=== PATIENT | female | born 1990 | race African-American/Black ===

== ENCOUNTER 2016-11-17 20:20 | Emergency (ER) | payer MEDICAID, OTHER ==
[~2016-11-17] VITALS: Ht 157.5 cm; Wt 110.0 kg
[~2016-11-17 20:20] MED LIST: PROM25SU8 PO
[2016-11-17 20:21] VITALS: BP 139/77; PULSE 63; RESP 16; TEMP 98.3; O2SAT 100
[2016-11-17 23:04] LABS: AUTOMATED NEUTROPHIL # 5.5 TH/MM3 (1.8-7.7); BASOPHIL % 0.3 % (0.0-2.0); EOSINOPHIL # 0.1 TH/MM3 (0-0.4); EOSINOPHIL % 1.3 % (0.0-4.0); HEMATOCRIT 36.1 % (35.0-46.0); HEMO FLAGS DIFF FINAL; LYMPH % 34.2 % (9.0-44.0); LYMPHOCYTE # 3.2 TH/MM3 (1.0-4.8); MEAN CELL VOLUME 80.4 FL (80.0-100.0); MEAN CORPUSCULAR HEMOGLOBIN 26.7 PG (27.0-34.0); MEAN CORPUSCULAR HGB CONC 33.2 % (32.0-36.0); MONO % 5.1 % (0.0-8.0); NEUT % 59.1 % (16.0-70.0); PLATELET COUNT 291 TH/MM3 (150-450); RED BLOOD COUNT 4.49 MIL/MM3 (4.00-5.30); WHITE BLOOD COUNT 9.3 TH/MM3 (4.0-11.0)
[2016-11-17 23:13] LABS: BACTERIA, URINE RARE /hpf; BLOOD, URINE NEG (NEG); COMMENT (UR) CULT NOT INDICATED; CULTURE IF INDICATED CULT NOT INDICATED; GLUCOSE,URINE NEG (NEG); KETONE, URINE NEG (NEG); MUCUS URINE FEW /lpf (OCC); PH, URINE 6.5 (5.0-8.5); SQUAMOUS EPITHELIAL CELL URINE 4 /hpf (0-5); URINE COLOR YELLOW (YELLW/STRAW)
[2016-11-17 23:19] LABS: NITRITE,URINE POS (NEG)
[2016-11-17 23:28] LABS: BICARBONATE 26.9 MEQ/L (21.0-32.0); POTASSIUM 3.9 MEQ/L (3.5-5.1)
[2016-11-18 00:09] LABS: INDIRECT BILIRUBIN 0.2 MG/DL (0.0-0.8); TOTAL BILIRUBIN ADULT 0.3 MG/DL (0.2-1.0)
--- NOTE | 2016-11-18 00:12 | PD ---
HPI Chief Complaint: Abdominal Pain Time Seen by Provider: 23:31 Travel History International Travel<30 days: No Contact w/Intl Traveler<30days: No Traveled to known affect area: No History of Present Illness HPI Patient is an obese 26 yo AAF presenting to the [facility] ED with severe RUQ pain that woke her from her sleep this morning with associated nausea and vomiting. She states the pain was so severe she could not drive herself to the hospital so she had to wait for her mother to get off work to drive her. The pain is 10/ 10 and radiates to her right side. She states she had similar pain in 2011 when she was diagnosed with gallstones via US. She was treated nonoperatively and has not had any further episodes until today. Denies any fever chills, SOB, Chest pain, or changes in bowel habitus. She states she is otherwise healthy, takes no medications and has no known medical conditions. PFSH Past Medical History Asthma: Yes Cancer: No Cardiovascular Problems: Yes (ABNORMAL EKG) Developmental Delay: No Diabetes: No Diminished Hearing: No Endocrine: No Gastrointestinal Disorders: Yes (gallstones) GERD: Yes Genitourinary: No Headaches: Yes Hepatitis: No Hiatal Hernia: No Hypertension: Yes Immune Disorder: No Musculoskeletal: No Neurologic: Yes (MIGRAINES) Psychiatric: No Reproductive: Yes (MISCARRIAGE) Respiratory: Yes (ASTHMA) Immunizations Current: No Migraines: Yes Thyroid Disease: No ?: Not LMP: 10/23/16 : 3 Para: 3 Miscarriage: 0 : 0 Dilation and Curettage (D&C): Yes (10/03/14) Past Surgical History Oral Surgery: Yes (TONSILLECTOMY) Tonsillectomy: Yes Social History Alcohol Use: Yes (occassional) Tobacco Use: No Substance Use: No Allergies-Medications (Allergen,Severity, Reaction): Coded Allergies: Augmentin (Verified Allergy, Severe, Hives, 11/17/16) *MDRO Multi-Drug Resistant Organism (Unverified Adverse Reaction, Unknown , 11/17/16) MRSA 2007 thigh wound Uncoded Allergies: LICORICE (Adverse Reaction, Severe, 09/08/10) Reported Meds & Prescriptions Reported Meds & Active Scripts Active Cipro (Ciprofloxacin HCl) 250 Mg Tab 250 Mg PO BID 5 Days Review of Systems Except as stated in HPI: all other systems reviewed are Neg General / Constitutional: No: Fever, Chills Cardiovascular: No: Chest Pain or Discomfort, Palpitations Gastrointestinal: Positive: Nausea, Vomiting, Abdominal Pain, No: Diarrhea, Constipation, Changes in Bowel Habits Physical Exam Narrative GENERAL: Patient is an obese AA female in mild distress from her abdominal pain SKIN: Warm and dry. HEAD: Atraumatic. Normocephalic. EYES: Pupils equal and round. No scleral icterus. No injection or drainage. ENT: No nasal bleeding or discharge. Mucous membranes pink and moist. NECK: Trachea midline. No JVD. CARDIOVASCULAR: Regular rate and rhythm. RESPIRATORY: No accessory muscle use. Clear to auscultation. Breath sounds equal bilaterally. GASTROINTESTINAL: Abdomen soft, nondistended. Tender in the RUQ. Pain is increased on inspiration, no masses identified MUSCULOSKELETAL: Extremities without clubbing, cyanosis, or edema. No obvious deformities. NEUROLOGICAL: Awake and alert. No obvious cranial nerve deficits. Motor grossly within normal limits. Five out of 5 muscle strength in the arms and legs. Normal speech. PSYCHIATRIC: Appropriate mood and affect; insight and judgment normal. Data Data Last Documented VS Vital Signs Date Time Temp Pulse Resp B/P Pulse Ox O2 Delivery O2 Flow Rate FiO2 11/17/16 22:20 18 11/17/16 20:21 98.3 63 139/77 100 Room Air VS noted Orders Basic Metabolic Panel (Bmp) (11/17/16 21:03) Complete Blood Count With Diff (11/17/16 21:03) Urinalysis - C+S If Indicated (11/17/16 21:03) Ed Urine Pregnancytest Poc (11/17/16 21:03) Hepatic Functional Panel (11/17/16 22:22) Lipase (11/17/16 22:22) Ciprofloxacin (Cipro) (11/18/16 01:00) Acetamin-Hydrocod 325-5 Mg ([place] 5-325 (11/18/16 01:00) Ed Poc Ultrasound (11/18/16 00:46) Labs Laboratory Tests Test 11/17/16 22:22 White Blood Count 9.3 TH/MM3 Red Blood Count 4.49 MIL/MM3 Hemoglobin 12.0 GM/DL Hematocrit 36.1 % Mean Corpuscular Volume 80.4 FL Mean Corpuscular Hemoglobin 26.7 PG Mean Corpuscular Hemoglobin 33.2 % Concent Red Cell Distribution Width 14.0 % Platelet Count 291 TH/MM3 Mean Platelet Volume 8.5 FL Neutrophils (%) (Auto) 59.1 % Lymphocytes (%) (Auto) 34.2 % Monocytes (%) (Auto) 5.1 % Eosinophils (%) (Auto) 1.3 % Basophils (%) (Auto) 0.3 % Neutrophils # (Auto) 5.5 TH/MM3 Lymphocytes # (Auto) 3.2 TH/MM3 Monocytes # (Auto) 0.5 TH/MM3 Eosinophils # (Auto) 0.1 TH/MM3 Basophils # (Auto) 0.0 TH/MM3 CBC Comment DIFF FINAL Differential Comment Urine Color YELLOW Urine Turbidity HAZY Urine pH 6.5 Urine Specific [place] 1.021 Urine Protein NEG mg/dL Urine Glucose (UA) NEG mg/dL Urine Ketones NEG mg/dL Urine Occult Blood NEG Urine Nitrite POS Urine Bilirubin NEG Urine Urobilinogen 4.0 MG/DL Urine Leukocyte Esterase TRACE Urine RBC 1 /hpf Urine WBC 1 /hpf Urine Squamous Epithelial 4 /hpf Cells Urine Bacteria RARE /hpf Urine Mucus FEW /lpf Microscopic Urinalysis Comment CULT NOT INDICATED Sodium Level 140 MEQ/L Potassium Level 3.9 MEQ/L Chloride Level 106 MEQ/L Carbon Dioxide Level 26.9 MEQ/L Anion Gap 7 MEQ/L Blood Urea Nitrogen 10 MG/DL Creatinine 0.72 MG/DL Estimat Glomerular Filtration 119 ML/MIN Rate Random Glucose 82 MG/DL Calcium Level 8.7 MG/DL Total Bilirubin 0.3 MG/DL Direct Bilirubin 0.1 MG/DL Indirect Bilirubin 0.2 MG/DL Aspartate Amino Transf 17 U/L (AST/SGOT) Alanine Aminotransferase 56 U/L (ALT/SGPT) Alkaline Phosphatase 113 U/L Total Protein 7.6 GM/DL Albumin 3.4 GM/DL Lipase 106 U/L [facility] Medical Decision Making Medical Screen Exam Complete: Yes Emergency Medical Condition: Yes Medical Record Reviewed: Yes Differential Diagnosis Acute cholecystitis, appendicitis, diverticulitis, gastroenteritis Narrative Course CBC & BMP Diagram 11/17/16 22:22 LFTs normal Lipase 106 UA: UTI Bedside US reveals gallbladder calculi without pericholecystic fluid or gallbladder wall thickening or significant intrahepatic biliary ductal dilatation. There is mild tenderness with deep palpation in the right upper quadrant. Based on the blood work examined history acute cholecystitis is considered less likely however follow-up with the surgeon on an outpatient basis is appropriate. Cipro for UTI. Work note provided at patient's request. Diagnosis Primary Impression: UTI (urinary tract infection) Qualified Code: N30.00 - Acute cystitis without hematuria Additional Impression: Cholelithiasis Qualified Code: K80.20 - Calculus of gallbladder without cholecystitis without obstruction Referrals: Justin Monsivais MD 2 days Additional Instructions: You have a choice when it comes to health care, and we are glad that you chose [facility]. Hopefully, we have met your expectations on today's visit. You are welcome to return to [facility] at any time, as we are committed to meeting the health care needs of our community. Med/Other Pt SpecificInfo: Prescription(s) given Scripts Ciprofloxacin (Cipro)250 Mg [id number] Mg PO BID 5 Days Ref 0 Prov:Ridge Mcintosh MD 11/18/16 Disposition: 01 DISCHARGE HOME Condition: Stable Ridge Mcintosh MD Nov 18, 2016 00:12
[2016-11-18 00:30] VITALS: BP 124/67; PULSE 62; RESP 16; O2SAT 99
[2016-11-18] MEDS ORDERED: CIPROFLOXACIN 500 MG TAB PO ONE (01:00)
[2016-11-18] MEDS ORDERED: ACETAMINOPHEN/HYDROcodone 325 MG/5 MG TAB PO ONE (01:00)
[2016-11-18] MEDS ORDERED: CIPR250T52 PO (01:12)
== END 2016-11-18 02:01 | disposition home or self-care (01) ==
LOC: NEPC 20:20
DX: N30.00 Acute cystitis without hematuria (principal); K80.20 Calculus of gallbladder without cholecystitis without obstruction; I10 Essential (primary) hypertension; E66.9 Obesity, unspecified; Z87.09 Personal history of other diseases of the respiratory system; Z86.79 Personal history of other diseases of the circulatory system; Z87.19 Personal history of other diseases of the digestive system; Z86.69 Personal history of other diseases of the nervous system and sense organs; Z87.42 Personal history of other diseases of the female genital tract
CPT/HCPCS: 80048; 80076; 81001; 83690; 84703; 85025; 99284

== ENCOUNTER 2016-11-25 10:05 | Emergency (ER) | payer MEDICAID, OTHER ==
[~2016-11-25] VITALS: Ht 157.5 cm; Wt 100.0 kg
[~2016-11-25 10:05] MED LIST changes: +CIPR250T52 PO; -PROM25SU8 PO
[2016-11-25 10:07] VITALS: BP 125/74; PULSE 81; RESP 14; TEMP 98.2; O2SAT 99
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
[2016-11-25] MEDS ORDERED: ACETAMINOPHEN/HYDROcodone 325 MG/5 MG TAB PO ONE (13:00)
[2016-11-25] MEDS ORDERED: PROPARACAINE HCL 0.5% OPHT SOLN 15 ML BTL LEFT EYE ONE (13:00)
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
[2016-11-25] MEDS ORDERED: ERYTOIN10 LEFT EYE (14:04)
[2016-11-25] MEDS ORDERED: HYDR-3533 PO (14:04)
== END 2016-11-25 14:16 | disposition home or self-care (01) ==
LOC: NEPB 10:05
DX: S05.02XA Injury of conjunctiva and corneal abrasion without foreign body, left eye, initial encounter (principal); S00.12XA Contusion of left eyelid and periocular area, initial encounter; W50.0XXA Accidental hit or strike by another person, initial encounter; Y93.72 Activity, wrestling
CPT/HCPCS: 70450; 70486; 72125

== ENCOUNTER 2016-12-09 08:13 | Emergency (ER) | payer OTHER, MEDICAID ==
[~2016-12-09] VITALS: Ht 157.5 cm; Wt 100.0 kg
[~2016-12-09 08:13] MED LIST changes: +ERYTOIN10 LEFT EYE; +HYDR-3533 PO
[2016-12-09 08:16] VITALS: BP 147/83; PULSE 66; RESP 18; TEMP 98.5; O2SAT 100
--- NOTE | 2016-12-09 09:54 | PD ---
HPI Chief Complaint: ENT Complaint Time Seen by Provider: 09:53 Travel History International Travel<30 days: No Contact w/Intl Traveler<30days: No Traveled to known affect area: No History of Present Illness HPI 26-year-old female presents to the emergency Department with complaint of sore throat 2 days. She also has cough, nasal congestion, ear pain. Denies fever, chills, nausea, vomiting. Denies lump in throat, difficulty swallowing, unusual drooling. Reports painful swallowing. Reports burning sensation to the back of the throat. Took Tylenol last night for sore throat with some relief of pain. Not taking any other medications or tried any treatments to alleviate her symptoms. A coworker had sore throat also. History of asthma. Denies wheezing, chest pain, shortness of breath. Allergies to Augmentin. Says she can take penicillins. Does not have primary care provider. No other modifying factors or associated signs and symptoms. PFSH Past Medical History Asthma: Yes Cancer: No Cardiovascular Problems: Yes (ABNORMAL EKG) Developmental Delay: No Diabetes: No Diminished Hearing: No Endocrine: No Gastrointestinal Disorders: Yes (gallstones) GERD: Yes Genitourinary: No Headaches: Yes Hepatitis: No Hiatal Hernia: No Hypertension: Yes Immune Disorder: No Musculoskeletal: No Neurologic: Yes (MIGRAINES) Psychiatric: No Reproductive: Yes (MISCARRIAGE) Respiratory: Yes (ASTHMA) Immunizations Current: No Migraines: Yes Thyroid Disease: No ?: Not LMP: 12/19/16 : 3 Para: 3 Miscarriage: 0 : 0 Dilation and Curettage (D&C): Yes (10/03/14) Past Surgical History Oral Surgery: Yes (TONSILLECTOMY) Tonsillectomy: Yes Social History Alcohol Use: Yes (occassional) Tobacco Use: No Substance Use: No Allergies-Medications (Allergen,Severity, Reaction): Coded Allergies: Augmentin (Verified Allergy, Severe, Hives, 12/09/16) *MDRO Multi-Drug Resistant Organism (Unverified Adverse Reaction, Unknown , 12/09/16) MRSA 2007 thigh wound Uncoded Allergies: LICORICE (Adverse Reaction, Severe, 09/08/10) Reported Meds & Prescriptions Reported Meds & Active Scripts Active No Active Prescriptions or Reported Medications Review of Systems Except as stated in HPI: all other systems reviewed are Neg Physical Exam Narrative GENERAL: Well-nourished, well-developed female patient, in no acute distress; afebrile, nontoxic-appearing SKIN: Warm and dry. No rash. HEAD: Atraumatic. Normocephalic. EYES: Pupils equal and round at 3 mm with brisk reaction. No scleral icterus. No injection or drainage. PERRLA. ENT: Mucosa pink and moist. No erythema, edema or exudates. No uvular edema. No uvular, palatal, or tonsillar deviation. Airway patent. EARS: Bilateral pinnae and external canals appear within normal limits. Bilateral tympanic membranes without erythema, dullness or perforation. NECK: Trachea midline. No anterior cervical lymphadenopathy; with tenderness on palpation bilaterally. CARDIOVASCULAR: Regular rate and rhythm. No murmur appreciated. 3+ radial pulses. RESPIRATORY: No accessory muscle use. Clear to auscultation. Breath sounds equal bilaterally. GASTROINTESTINAL: Abdomen soft, non-tender, nondistended. Hepatic and splenic margins not palpable. Bowel sounds are active 4 quadrants. MUSCULOSKELETAL: No obvious deformities. No clubbing. No cyanosis. No edema. NEUROLOGICAL: Awake and alert. Oriented 3. No obvious cranial nerve deficits. Motor grossly within normal limits. Normal speech. Moves all extremities. 5/5 strength to all extremities. PSYCHIATRIC: Appropriate mood and affect; insight and judgment normal. Data Data Last Documented VS Vital Signs Date Time Temp Pulse Resp B/P Pulse Ox O2 Delivery O2 Flow Rate FiO2 12/09/16 08:16 98.5 66 18 147/83 100 Room Air Orders Group A Rapid Strep Screen (12/09/16 09:54) Strep Culture (Group A) (12/09/16 10:10) [facility] Medical Decision Making Medical Screen Exam Complete: Yes Emergency Medical Condition: Yes Medical Record Reviewed: Yes Differential Diagnosis Pharyngitis, viral pharyngitis, viral illness Narrative Course 26-year-old female complaining of sore throat 2 days. She has had accompanied ear pain, cough, nasal congestion. Patient is afebrile and nontoxic-appearing. Denies lump in throat, unusual drooling, difficulty swallowing. Rapid strep ordered. 1050: Rapid strep negative. Ibuprofen, Magic mouthwash, Nasonex nasal spray prescribed for home. Patient is medically cleared and stable for discharge. Discussed reasons to return to the emergency department. Instructed patient to follow up with primary care provider. Patient agrees with treatment plan. The patients vital signs are stable and the patient is stable for outpatient follow- up and treatment. Patient discharged home, stable and in no acute distress. Diagnosis Primary Impression: Viral illness Referrals: Primary Care Physician Patient Instructions: Cold Symptoms (ED), General Instructions, Safe Use of Cough and Cold Medicines (ED) Departure Forms: Tests/Procedures, Work Release Enter return to work date: Dec 11, 2016 Additional Instructions: Get plenty of sleep/rest Rest your voice Drink plenty of fluids to prevent dehydration Use warm saltwater gargles to soothe throat pain Use an air humidifier/turn off ceiling fans Use throat lozenges as needed for sore throat Use ibuprofen or acetaminophen as needed to relieve pain and fever Follow-up with your primary care provider within 2-4 days Return immediately to the emergency department with worsening of symptoms Med/Other Pt SpecificInfo: Prescription(s) given Scripts Oyyjbatt-Wibpepzusfrkjnq-Urarjogkz Liq (Magic Mouthwash Adult Liq)120 Ml Susp5 Ml SWISH-SPIT Q3HR PRN (SORE THROAT) #120 ML Ref 0 Each 5mL contains: Nystatin 200,000units, Diphenhydramine 4.25mg, Viscous Lidocaine 10mg, Story syrup 0.8 mL Prov:Nubia Baldwin 12/09/16 Ibuprofen 800 Mg [id number] Mg PO Q6HR PRN (PAIN) #30 TAB Ref 0 Prov:Nubia Baldwin 12/09/16 Mometasone Nasal Empire (Nasonex Nasal Empire)50 Mcg/Act Naspr2 Empire EACH NARE DAILY PRN (NASAL CONGESTION) #1 BOTTLE Ref 0 Prov:Nubia Baldwin 12/09/16 Disposition: 01 DISCHARGE HOME Condition: Stable Nubia Baldwin Dec 09, 2016 09:54
[2016-12-09] MEDS ORDERED: IBUP800T23 PO (10:53)
[2016-12-09] MEDS ORDERED: MOME17I EACH NARE (10:53)
[2016-12-09] MEDS ORDERED: MAGICADU2 SWISH-SPIT (10:53)
== END 2016-12-09 11:22 | disposition home or self-care (01) ==
LOC: NEPB 08:13
DX: B34.9 Viral infection, unspecified (principal); J02.9 Acute pharyngitis, unspecified; H92.09 Otalgia, unspecified ear; J45.909 Unspecified asthma, uncomplicated; I10 Essential (primary) hypertension; K21.9 Gastro-esophageal reflux disease without esophagitis
CPT/HCPCS: 87081; 87880; 99283

== ENCOUNTER 2017-03-15 01:30 | Emergency (ER) | payer MEDICAID ==
[~2017-03-15 01:30] MED LIST changes: -CIPR250T52 PO; -ERYTOIN10 LEFT EYE; -HYDR-3533 PO; +IBUP800T23 PO; +MAGICADU2 SWISH-SPIT; +MOME17I EACH NARE
[2017-03-15 01:35] VITALS: BP 132/84; PULSE 67; RESP 16; TEMP 98.8; O2SAT 99
== END 2017-03-15 02:04 | disposition left against medical advice (07) ==
LOC: NED 01:30
DX: T14.8 Other injury of unspecified body region (principal); W57.XXXA Bitten or stung by nonvenomous insect and other nonvenomous arthropods, initial encounter; Z53.21 Procedure and treatment not carried out due to patient leaving prior to being seen by health care provider
CPT/HCPCS: 99281

== ENCOUNTER 2017-03-22 13:50 | Emergency (ER) | payer MEDICAID, OTHER ==
[~2017-03-22] VITALS: Ht 157.5 cm; Wt 91.0 kg
[2017-03-22 13:51] VITALS: BP 129/60; PULSE 80; RESP 20; TEMP 98.8; O2SAT 99
[2017-03-22] MEDS ORDERED: IBUPROFEN 800 MG TAB PO ONE (14:15)
[2017-03-22] MEDS ORDERED: LIDOCAINE HCL 1% 50 ML VIAL INFIL ONE (14:15)
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
[2017-03-22] MEDS ORDERED: CEPH500C PO (14:22)
[2017-03-22] MEDS ORDERED: IBUP800T23 PO (14:22)
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
== END 2017-03-22 16:20 | disposition home or self-care (01) ==
LOC: NEPK 13:50
DX: S61.303A Unspecified open wound of left middle finger with damage to nail, initial encounter (principal); W51.XXXA Accidental striking against or bumped into by another person, initial encounter
CPT/HCPCS: 11760; 73140